=== PATIENT | male | born 1970 | race Two or more races ===

== ENCOUNTER 2019-10-06 13:41 | Emergency (ER) | payer SELFPAY ==
[~2019-10-06] VITALS: Ht 170.2 cm; Wt 68.0 kg
[2019-10-06 14:12] VITALS: BP 126/86
[2019-10-06] MEDS ORDERED: FLUORESCEIN SOD 1 MG TEST STRIP RIGHTEYE ONE (14:15)
[2019-10-06] MEDS ORDERED: TETRACAINE HCL 0.5% OPTH(EYE) SOLN 4ML RIGHTEYE ONE (14:15)
== END 2019-10-06 15:06 | disposition home or self-care (01) ==
LOC: ER 13:41
DX: H10.31 Unspecified acute conjunctivitis, right eye (principal)